=== PATIENT | male | born 1975 | race Two or more races ===

== ENCOUNTER 2023-06-11 12:01 | Emergency (ER) | payer MEDICAID, OTHER ==
[~2023-06-11] VITALS: Ht 175.3 cm; Wt 91.0 kg
[2023-06-11 12:06] VITALS: O2SAT 98
[2023-06-11] MEDS: HYDROCODONE/ACETAMINOPHEN 5/325MG TABLET PO STA (13:43)
[2023-06-11] MEDS: KETOROLAC 60MG/2ML VIAL IM STA (13:43)
[2023-06-11] MEDS ORDERED: NAPR-681 PO (14:37)
[2023-06-11] MEDS ORDERED: CYCL5TAB MT (14:37)
[2023-06-11 14:55] VITALS: BP 145/80; PULSE 92; RESP 20; TEMP 97.7
== END 2023-06-11 15:02 | disposition home or self-care (01) ==
LOC: EDBD 12:15 → ER 12:15
DX: M43.6 Torticollis (principal); M54.2 Cervicalgia
CPT/HCPCS: 99283; 96372; J1885